=== PATIENT | female | born 1935 | race Caucasian/White ===

== ENCOUNTER 2021-07-02 13:59 | Emergency (ER) | payer MEDICARE, OTHER ==
[2021-07-02 14:10] VITALS: BP 126/60
--- NOTE | 2021-07-02 14:22 | ED Physician Documentation ---
History of Present Illness - Stated complaint Stated Complaint: GLF/L WRIST PX - Chief complaint Chief Complaint: Trauma Hd/Nk - Additonal information Additional information: 85-year-old female presents the emergency department for evaluation of left wrist pain after ground-level fall. She reports that she was attempting to enter a car when her cane got caught in the strings of her purse causing her to fall forward and strike the ground. She is not anticoagulated and did not lose consciousness. She has a minor abrasion of her right cheek. However she is exhibiting pain in the left wrist which prompts the ED visit. She reports that at baseline she typically ambulates with a cane or walker. Due to increasing difficulty with mobility she is scheduled to see a manager leasing. Review of Systems Constitutional: reports: Reviewed and negative Ears: reports: Reviewed and negative Throat: reports: Reviewed and negative Cardiac: reports: Reviewed and negative Respiratory: reports: Reviewed and negative Skin: reports: Abrasion (s) Musculoskeletal: reports: Extremity pain PD PAST MEDICAL HISTORY - Allergies Allergies/Adverse Reactions: Allergies Allergy/AdvReac Type Severity Reaction Status Date / Time bee venom protein (honey bee) Allergy Anaphylaxis Verified 07/02/21 14:07 diazepam [From Valium] Allergy Anxiety Verified 07/02/21 14:07 lanolin Allergy Rash Verified 07/02/21 14:07 scopolamine Allergy Anxiety Verified 07/02/21 14:07 PD ED PE EXPANDED - General General: Alert, No acute distress, Well developed/nourished - HEENT HEENT: PERRL, EOMI, Ears normal, Moist mucous membranes, Other (Superficial laceration just above the right canine incisor of the mouth. Does not extend extend internally. Mild swelling of the right upper lip. Superficial abrasion of the right cheek bone.) - Neck Neck: Supple w/out meningeal sx. No: Adenopathy - Cardiac Cardiac: Regular Rate, Radial strong equal, Pedal strong equal, Cap refill < 2 sec - Respiratory Respiratory: Clear to ausultation jose g. No: Distress, Labored - Abdomen Abdomen: Normal Bowel sounds. No: Tender to palpation - Derm Derm: Normal color, Warm and dry - Extremities Extremities: Normal, Tenderness, Left wrist (tenderness dorsum left wrist distal radius. no deformity. limited flexion/extension of wrist secondary to pain. 2+ radial pulse). No: Deformity Results - Vitals Vitals: Vital Signs - 24 hr 07/02/21 14:07 Temperature 36.5 C Heart Rate 66 Respiratory 16 Rate Blood Pressure 126/60 O2 Saturation 97 Oxygen O2 Source Room air - Rads (name of study) left wrist Radiology: Final report received (Minimally displaced left Distal radial fracture) PD MEDICAL DECISION MAKING - ED course Complexity details: reviewed results, considered differential, d/w patient ED course: 85 year old female presents to the ED for evaluation of left wrist pain after GLF this afternoon when her cane tripped her up while entering a car. No LOC. No anticoagulation Pt has declines Maxillofacial imaging at this time. Reports that the less she knows, the better. X-ray of the left wrist showed a minimally displaced left distal radial fracture. She was placed in ulnar gutter radial splint. Placed in a sling. Patient lives in [place] and will follow up with her [facility] orthopedics. Routine splint care discussed. Post splinting CMS T preserved. Departure - Departure Disposition: 01 Home, Self Care Clinical Impression: Abrasion, cheek w/o infection, Fall from ground level Closed left radial fracture Qualifiers: Encounter type: initial encounter Radius location: distal Fracture morphology: Colles' Qualified Code(s): S52.532A - Colles' fracture of left radius, initial encounter for closed fracture Condition: Stable Record reviewed to determine appropriate education?: Yes Instructions: ED Fx Upper Ext Follow-Up: JORJE PENA MD [Primary Care Provider] - Comments: Pedro Pablo unfortunately the x-ray of your left wrist does show a radial fracture. This is the type of fracture that will not require surgery but will simply need to be immobilized for 6 to 8 weeks. Please keep your splint clean and dry. If it gets wet it should be replaced at your nearest ER. Discussed this ED visit with your orthopedic surgeon. They will likely want to place you in a formal cast. You can take Tylenol or ibuprofen for discomfort at home. If at any point you have numbness or tingling in your fingers, increased pain or fevers then please return to the ER for a second evaluation.
--- NOTE | 2021-07-02 14:44 | XRAY Report ---
PROCEDURE: Wrist 4 View LT INDICATIONS: Trauma TECHNIQUE: 4 views of the wrist were acquired. COMPARISON: None FINDINGS: Bones: Minimally displaced distal radial fracture.. No suspicious bony lesions. Scaphoid view: No scaphoid fracture. Soft tissues: No suspicious soft tissue calcifications. IMPRESSION: Minimally displaced distal radial fracture. Reviewed by: Brenda Roger MD on 07/02/2021 2:42 PM PDT Approved by: Brenda Roger MD on 07/02/2021 2:42 PM PDT Station ID: [id number]
== END 2021-07-02 15:50 | disposition home or self-care (01) ==
LOC: ED 13:59
DX: S52.532A Colles' fracture of left radius, initial encounter for closed fracture (principal); S01.512A Laceration without foreign body of oral cavity, initial encounter; W18.39XA Other fall on same level, initial encounter; Y93.89 Activity, other specified
CPT/HCPCS: 29125; 99283